=== PATIENT | male | born 1975 | race African-American/Black ===

== ENCOUNTER 2018-09-20 09:03 | Inpatient (IN) | payer OTHER ==
[~2018-09-20] VITALS: Ht 167.6 cm; Wt 172.4 kg
[2018-09-20 09:04] VITALS: BP 175/78
[2018-09-20 11:21] LABS: HEMATOCRIT 37.4 % (42.0-52.0); HEMOGLOBIN 12.4 gm/dL (14.0-18.0); MCH 27.2 pg (26.0-34.0); MCHC 33.2 g/dL (28.0-37.0); MCV 82.2 fL (80.0-100.0); RBC 4.55 mil/uL (4.50-6.00); RDW 14.5 % (10.5-14.5); WBC 23.3 thou/uL (4.0-11.0)
[2018-09-20 11:31] LABS: CREATININE 1.2 mg/dL (0.7-1.3); POTASSIUM 3.9 mmol/L (3.5-5.1)
[2018-09-20] MEDS ORDERED: ONE DAILY COMP1 EAC2 PO (13:06)
--- NOTE | 2018-09-20 15:30 | NUR ---
IV TEAM REQUESTED FOR PLACEMENT OF 2ND IV
[2018-09-20 15:44] VITALS: BP 137/79
[2018-09-20 16:05] VITALS: BP 155/65
--- NOTE | 2018-09-20 19:58 | NUR ---
PT ARRIVED ON UNIT AT 1655 ACCOMPANIED BY . PT ALERT XS 4 HAS IV ABT VANCO THAT ER COULD NOT START NO IV ACSESS. PT NOW HAS RIGHT UPPER ARM IV ACSESS. PERIPERAL. PATIENT TO HAVE SURGERY AT APPROX 0900- [address] GONZALES. PATIENT STATES DR WALSH AND JANTE SAW HIM IN ER KNOWS HE'S HERE. PT NO PAIN VERY PLEASANT. 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
[2018-09-20 21:05] VITALS: BP 141/90
[2018-09-21 00:30] VITALS: BP 140/82
[2018-09-21 05:05] VITALS: BP 128/80
--- NOTE | 2018-09-21 05:09 | NUR ---
PATIENTS CARE WAS ASSUMED AT SHIFT CHANGE. PATIENT WAS ASSESSED AND MEDS WERE PASSED. HOURLY ROUNDS WERE DONE AND PATIENT DID WEAR HIS CPAP AT BED TIME. PATIENT APPERED TO SLEEP FOR 6 TO 7 HOURS. PATIENT DID HAVE A BED BATH IN A CHAIR THIS MORNING. PATIENT IS CONSENTED TO HAVE SURGERY THIS MORNING. THE BED IS IN A LOW AND LOCKED POSITION.
[2018-09-21 05:29] LABS: HEMATOCRIT 37.3 % (42.0-52.0); HEMOGLOBIN 12.2 gm/dL (14.0-18.0); MCH 27.1 pg (26.0-34.0); MCHC 32.7 g/dL (28.0-37.0); MCV 82.9 fL (80.0-100.0); RBC 4.5 mil/uL (4.50-6.00); RDW 15.4 % (10.5-14.5)
[2018-09-21 05:42] LABS: CALCIUM 8.3 mg/dL (8.5-10.1); CREATININE 1.2 mg/dL (0.7-1.3)
[2018-09-21 06:10] LABS: GLYCOHEMOGLOBIN (HGB A1C) 6.4 % (4.8-5.6)
[2018-09-21 07:40] VITALS: BP 147/90
--- NOTE | 2018-09-21 08:55 | NUR ---
PT IS A&0X4, BLIND, NO C/O PAIN OR NAUSEA AT THIS TIME, SOUGHT OUT ANOTHER URINAL FOR HIM, GAVE HIM MOUTH SWABS, MOVED TABLE OVER CLOSER TO PT, TURNED IVF FROM 25ML/HR TO 75ML/HR. CONSENTS SIGNED. GAVE HIM WIPES TO CLEAN UP MUCH HE CAN AND ASKED HIM TO CALL FOR ANY OTHER NEEDS. CALL LIGHT WITHIN REACH AND PT KNOWS, BY FEEL, THE NURSE END. DENIES ANY TELEVISION VIEWING NEEDS OR OTHER NEEDS AT THIS TIME. ABD PAD OVER SITE, NO DRAINAGE AT THIS TIME
--- NOTE | 2018-09-21 12:54 | NUR ---
PT ARRIVED VIA BED, ACCOMPANIED BY FAMILY, ASKED FOR HIS CPAP MACHINE, WANTED TO NAP, CALLED DOWN TO DIETARY TO RETRIEVE MEAL. DENIES ANY PAIN AT THIS TIME, LIGHTLY APPLIED DRESSING TO MIDLINE W/REPORTS OF WOUND BEING OPEN, POSSIBLE RETURN TO SURGERY TOMORROW A.M. PT AND FAMILY ENCOURAGED TO USE CALL LIGHT FOR ANY NEEDS, WILL HANG IVB D/T NOW SOON IV PUMP AND PLUG IN FOUND
[2018-09-21 16:19] VITALS: BP 148/91
[2018-09-21 20:15] VITALS: BP 133/65
--- NOTE | 2018-09-22 00:36 | NUR ---
Assumed care of pt at 1900. Pt a&o x4. Denies pain. Dressing on abdomen clean and intact. IVF and antibiotics administered. Call light within reach. Will continue to monitor and assist with needs.
[2018-09-22 03:15] VITALS: BP 108/62
[2018-09-22 03:52] LABS: ALBUMIN 1.5 g/dL (3.4-5.0); CALCIUM 8.1 mg/dL (8.5-10.1); CREATININE 1.1 mg/dL (0.7-1.3); PHOSPHORUS 2.4 mg/dL (2.5-4.9)
[2018-09-22 04:30] LABS: HEMATOCRIT 33.2 % (42.0-52.0); HEMOGLOBIN 11.1 gm/dL (14.0-18.0); MCH 27.6 pg (26.0-34.0); MCHC 33.4 g/dL (28.0-37.0); MCV 82.7 fL (80.0-100.0); RBC 4.02 mil/uL (4.50-6.00); RDW 15.2 % (10.5-14.5); WBC 24.3 thou/uL (4.0-11.0)
[2018-09-22 07:11] LABS: HIV ANTIBODY Non Reactive (Non Reactive)
[2018-09-22 08:58] VITALS: BP 135/70
--- NOTE | 2018-09-22 10:54 | NUR ---
IV NURSE HERE TO PLACE PICC LINE.
--- NOTE | 2018-09-22 11:50 | NUR ---
CONSULTED TO PLACE A PICC FOR A PATIENT NEEDING HOME IV ANTIBIOTICS. ORDER AND CONSENT NOTED. DISCUSSED PICC PLACEMENT WELL BENIFITS AND RISK. THE PATIENT VERBALIZED UNDERSTANDING. THE RIGHT UPPER ARM CEPHALIC WAS WIDLEY PATENT. A #4F SINGLE LUMEN POWER PICC WAS PLACED PER POLICY AFTER A BEDSIDE TIMEOUT WAS COMPLETE. LINE WAS TRIMMED TO 41CM AND ADVANCED WITHOUT DIFFICULTY. A STAT CHEST XRAY WAS ORDERED AND LINE CONFIRMED TO BE IN GOOD POSITION FOR USE. LINE RELEASED FOR USE
--- NOTE | 2018-09-22 13:43 | NUR ---
FAXED REFERRAL TO [facility] FOR HOME IV ABX. SPOKE WITH ADM. WATKINS AND THEY RECEIVED REFERRAL AND WILL REVIEW. DCP TO FOLLOW.
--- NOTE | 2018-09-22 14:06 | NUR ---
Assess for high BMI 61.4=extreme class III obesity. Admitted with I/D of abdominal wall abscess. No hx diabetes, BG elevated 154-282 and A1C of 6.4-physician indicated insulin resistance. Started on metformin and SS insulin. Appetite is good. Pt with visual impairment but listened to appropriate changes to make with carb controlled menu. Seeks assistance ordering meals when wanting to choose from alternative menu. Low nutrition risk
--- NOTE | 2018-09-22 14:25 | HC ---
[facility] [place] [address] CONSULTATION Name: DEJON SANZ Room #: 421-P [facility] IN [facility]#: [id number] Admission: 09/20/18 ������������������ Attend Phys: Quintin Vasquez MD Discharge: ������������������ Date of : 75 Report #: [id number] THIS REPORT FOR: //name// CC: Iqra Gomez DATE OF SERVICE: 09/21/2018 REASON FOR CONSULTATION: I was asked to evaluate concerning abdominal wall mesh abscess. HISTORY OF PRESENT ILLNESS: The patient was a 43-year-old morbidly obese gentleman, who underwent ventral hernia repair for incarcerated umbilical hernia approximately 14 months ago. For this repair, he required mesh placement. Early postoperative course went well. About 10 days ago, he developed increased abdominal pain, associated with some malaise, fatigue and anorexia. He has had normal stools. He then developed increasing abdominal wall pain. He presents to the Emergency Room for further evaluation. CT scan showed evidence of right abdominal wall abscess. There was concern about diverticular disease as well. REVIEW OF SYSTEMS: Ten-point review was negative other than what is described above. ALLERGIES: None known. MEDICATIONS: Now on vancomycin and Zosyn. No antibiotics prehospital stay. PAST MEDICAL HISTORY: As noted above. FAMILY HISTORY: Noncontributory. SOCIAL HISTORY: Nonsmoker, minimal alcohol intake. PHYSICAL EXAMINATION: VITAL SIGNS: Afebrile and hemodynamically stable. GENERAL: He is alert, cooperative and pleasant, in no acute distress. He was obese. SKIN: Without rash or decubitus. No palpable adenopathy. HEENT: Eyes without scleral icterus. Mouth without mucositis. NECK: Supple. LUNGS: Clear. HEART: Regular, without murmur, gallop or rub. ABDOMEN: Distended. He had a large abdominal wound with purulent drainage down the right side of his abdomen. This will be reinforced by nursing staff. Moderate tenderness throughout. No appreciable mass or hepatosplenomegaly. [facility] [address] [place] [address] CONSULTATION Name: DEJON SANZ Room #: 421-P [facility] IN [facility].#: [id number] Admission: 09/20/18 ������������������ Attend Phys: Quintin Vasquez MD Discharge: ������������������ Date of : 75 Report #: [id number] RECTAL: Not performed. EXTERNAL GENITALIA: Without mass or lesion. EXTREMITIES: Without clubbing or cyanosis. He did have 2+ lower extremity edema. NEUROLOGIC: He was alert and cooperative. Cranial nerves intact. Strength in his upper and lower extremities was normal. Sensation intact. PSYCHIATRIC: Normal. LABORATORY STUDIES: Blood cultures are negative to date. Sodium 138, potassium 4, bicarbonate of 21, creatinine 1.2. Hemoglobin 12.2; WBC 23; platelet count 373,000. CT of the abdomen as noted above. IMPRESSION: 1. A 43-year-old with abdominal wall mesh infection with abscess. I am still concerned about potential compromised bowel beneath this and fistula. This will need to be followed postoperatively. We will await microbiology reports and cultures of the abscess. 2. Obesity. 3. Hyperglycemia. RECOMMENDATION: 1. We will continue broad antibiotic coverage pending culture results. 2. Surgical followup. 3. We will arrange outpatient therapy when appropriate. ��������������������������������������������� <ELECTRONICALLY SIGNED> ���������������������������������������� By: Donny Vinson MD ��������������������������������������������� 09/22/18 1425 [id number] Donny Vinson MD /nt
--- NOTE | 2018-09-22 15:02 | NUR ---
WOUND CONSULT: PT. WAS SEEN TODAY BY WOUND CARE TEAM DAVID THOMAS AND MYSELF. PT. HAS SURGICAL DEBRIDEMENT YESTERDAY WITH DR. GONZALES FOR A ABDOMINAL WALL ABCESS. SURGICAL DRESSING WAS CHANGED TODAY. PT. WOUND HAS LARGE AMOUNTS OF SEROUSANGIOUS FLUID AND WHAT POSSIBLY APPEARS TO BE A FISTULE IN THE BASE OF THE WOUND BED. DR. GONZALES WAS NOTIFIED. RECOMMENDATIONS: WOUND CARE TO ABDOMEN: GENTLY CLEANSE AREA WITH WOUND CLEANSER OR NORMAL SALINE, APPLY XEROFORM TO WOUND BED, PACK WITH DAKIN MOIST KERLIX, COVER WITH ABD, SECURE WITH TAPE, COMPLETE CARES DAILY AND PRN. PT. AND STAFF NURSE WERE INSTRUCTED ON PLAN OF CARE.
--- NOTE | 2018-09-22 16:31 | NUR ---
Snuff Maker visited with the pt at bedside. Cm role introduced. Pt is a&ox4 and legally blind. He reads benson. He works fulltime for the [employer] and lives with his who works from home. He is s/p I/D of a dehised surgical incision from a hernia repair. He will likely need home infusion for iv atb and HH for wound care. Awaiting final recommendations from ID and wound care. Insurance benefits and providers being checked. [facility] is innetwork with his plan as well as [facility]. Picc line was placed today. Pt reports that he will need a physician statment detailing his plan of care and when he will be able to return to work. He is not taking FMLA, only " advanced sick leave" which does not have any specific forms. Pt is also newly dx with dm and will likely need to go home on insulin. Will need to investigate options for an insulin pen that has bradille or see if his can assist. Talking meters are available. Will follow.
[2018-09-22 20:01] VITALS: BP 113/77
--- NOTE | 2018-09-23 02:19 | NUR ---
Assumed care of pt at 1900. Pt alert and oriented x4. No c/o pain. Dressing on abdomen clean and intact. IVF and antibiotics infusing. Call light within reach. Will continue to monitor and assist with needs.
[2018-09-23 04:08] LABS: HEMATOCRIT 32.1 % (42.0-52.0); HEMOGLOBIN 10.4 gm/dL (14.0-18.0); MCH 26.7 pg (26.0-34.0); MCHC 32.4 g/dL (28.0-37.0); MCV 82.7 fL (80.0-100.0); RBC 3.89 mil/uL (4.50-6.00); RDW 15.2 % (10.5-14.5); WBC 21.4 thou/uL (4.0-11.0)
[2018-09-23 04:23] VITALS: BP 110/82
[2018-09-23 07:40] VITALS: BP 132/84
--- NOTE | 2018-09-23 11:32 | NUR ---
pt wants abd dressing done later in day
--- NOTE | 2018-09-23 14:19 | NUR ---
WOUND FOLLOW UP: PT. WAS SEEN TODAY BY DR. GUDINO AND MYSELF. PT. WOUND IS CLINICALLY BETTER TODAY THEN YESTERDAY. WILL PROCEED WITH STARTING A WOUND VAC TOMORROW. RECOMMENDATIONS: CONTINUE WITH CURRENT PLAN OF CARE. PT. AND STAFF NURSE WERE INSTRUCTED ON PLAN OF CARE.
[2018-09-23 16:00] VITALS: BP 144/78
[2018-09-23 19:29] VITALS: BP 135/92
--- NOTE | 2018-09-24 00:53 | NUR ---
Assumed care of pt at 1900. Pt alert and oriented x4. Denies pain. Dressing clean and intact. IV antibiotics infusing. Call light within reach. Will continue to monitor and assist with needs.
[2018-09-24 04:44] VITALS: BP 141/74
[2018-09-24 06:08] LABS: HEMATOCRIT 33.4 % (42.0-52.0); HEMOGLOBIN 11.1 gm/dL (14.0-18.0); MCH 27.5 pg (26.0-34.0); MCHC 33.1 g/dL (28.0-37.0); MCV 83.1 fL (80.0-100.0); RBC 4.02 mil/uL (4.50-6.00); RDW 15.2 % (10.5-14.5)
[2018-09-24 07:48] VITALS: BP 140/92
--- NOTE | 2018-09-24 12:03 | NUR ---
CONTACTED BY DR GUDINO TO HAVE [facility] EVAL PT FOR POSSIBLE ADMISSION. CONTACTED MARTHA AND SHE WILL CHECK INTO PT'S BENEFITS. PT IS REALLY WANT TO GO HOME IF POSSIBLE. FOLLOWING. ANTICIPATE DC ON THURSDAY IF MEDICALLY STABLE.
--- NOTE | 2018-09-24 13:06 | NUR ---
WOUND FOLLOW UP: PT. WAS SEEN TODAY BY DR. GUDINO AND MYSELF. PT. WOUND IS READY FOR WOUND VAC TODAY. DISCUSED THIS WITH THE PT. AND HE IS AGREEABLE. WOUND VAC WILL BE APPLIED TODAY BY WOUND CARE. RECOMMENDATIONS: CONTINUE WITH CURRENT PLAN OF CARE. PT. AND STAFF NURSE WERE INSTRUCTED ON PLAN OF CARE.
[2018-09-24 16:05] VITALS: BP 132/77
--- NOTE | 2018-09-24 16:07 | NUR ---
WOUND FOLLOW UP: WOUND VAC WAS APPLIED TODAY. PT. TOLERATED PROCEDURE WELL. RECOMMENDATIONS: CONTINUE WITH CURRENT PLAN OF CARE. PT. AND STAFF NURSE WERE INSTRUCTED ON PLAN OF CARE.
--- NOTE | 2018-09-24 16:41 | NUR ---
DCP NOTIFIED SUSY AT [facility] THAT PT. WILL NOT DISCHARGE TIL THURSDAY WITH IV ABX WITH [facility] AND WOUND VAC. DCP TO FOLLOW.
--- NOTE | 2018-09-24 18:59 | NUR ---
Assumed pt car at 7am.Pt in bed with cpap on.Assessment completed. vss. Assisted pt with tray set up at all meals.Insulin given ac meals as ordered. Wound vac placed today by Judit basurto.Dr Sierra and Alisson here,order noted. Complete bath and bed change done by forest fire specialist supervisor.Pt has a good day.No verbal c/o.Pt will possibly dc home this weekend with iv antibiotic and wound vac.
[2018-09-24 20:13] VITALS: BP 147/84
--- NOTE | 2018-09-25 00:59 | NUR ---
PT DENIED PAIN SO FAR.BLE EDEMA NOTED,FEET ELEVATED WITH A PILLOW WHILE PT IN BED.PT ON A CPAP AT THIS TIME.ABD WOUND WITH A WOUND VAC,C/D/I.URINAL AT BEDSIDE.CALL LIGHT WITHIN REACH.
[2018-09-25 04:43] VITALS: BP 128/74
[2018-09-25 08:00] VITALS: BP 146/86
--- NOTE | 2018-09-25 08:45 | NUR ---
ASSESMENT COMPLETED. VSS. A/O. DENIES PAIN. NO NOTED SOA. NO NV. ASSISTED WITH URINAL. PT RESTING IN BED AT THIS TIME. APPEARS COMFORTABLE. WOUND VAC IN PLACE- 125 MMHG SUCTION. WILL CONT. TO MONITOR.
[2018-09-25 16:13] VITALS: BP 148/86
[2018-09-25 20:00] VITALS: BP 133/72
--- NOTE | 2018-09-26 01:05 | NUR ---
PT DENIED PAIN,N/V/SOB.ASSESSMENT COMPLETED.MIDLINE INCISION C/D SEAL INTACT WITH WOUND VAC.BLE EDEMA NOTED.ASSISTED PT WITH URINAL.PT SLEEPING WITH HIS CPAP AT THIS TIME,BREATHING REGULAR AND NON LABORED.IV ABX ADMINISTERED ORDERED.CALL LIGHT WITHIN REACH.
[2018-09-26 06:00] VITALS: BP 129/80
[2018-09-26 07:00] VITALS: BP 131/74
[2018-09-26 17:10] VITALS: BP 137/81
[2018-09-26 19:48] VITALS: BP 135/85
--- NOTE | 2018-09-26 20:11 | NUR ---
Assessment completed.vss.Pt in bed alert and oriented x4.Pt tolerated meds and diet.Wound vac intact to abdominal and patent.Dr Vinson and Martha here,order noted.Pt will be dc [facility] in am.Report off to sujata basurto.
--- NOTE | 2018-09-27 03:45 | NUR ---
ASSESSMNET COMPLETED.PT DENIED PAIN,N/V.HAD A LARGE FORMED BROWN BM THIS SHIFT.PT GAVE SELF A BED BATH AND WAS ASSISTED WITH SHAVING HIMSELF.ABD WOUND DRSG C/D/I WITH WOUND VAC IN PLACE.CANNISTER TO WOUND VAC WAS FULL CHANGED,SEAL INTACT.PT CONT ON IV ABX ORDERED.PT PLEASANT AND COOPERATIVE WITH CARE.CPAP IN PLACE WHILE PT IS ASLEEP.URINAL AT BEDSIDE.PT BREATHING NORMAL AND UNLABORED.CALL LIGHT WITHIN REACH.
[2018-09-27 04:36] VITALS: BP 133/74
[2018-09-27 08:59] VITALS: BP 131/77
[2018-09-27] MEDS ORDERED: GLUCOPHAGE1000 MG PO (10:25)
[2018-09-27] MEDS ORDERED: ZOSYN 4.54.5 GM/101 IV (10:28)
--- NOTE | 2018-09-27 12:37 | NUR ---
CM FOLLOWED UP WITH PT THIS DAY TO INFORM HIM OF HIS HOME IV INFUSION COVERAGE AND PT INDICATED THAT HE WAS RECEPTIVE TO LTAC. PT INDICATED HE FELT HE DIDN'T HAVE A GOOD UNDERSTANDING OF HIS [facility]IL YESTERDAY AND THAT PT IS NOW RECEPTIVE TO GOT TO [facility] FOR A TIME. PT INDICATED SHE LIVE NEED A PHYSICIAN STATEMENT TO PROVIDE TO HIS EMPLOYER. CM TO NOTIFY PHYSICAIN OF THE NEED. CM CONTACTED [facility] LIAISON AND UPDATED CLINICAL INFO WAS SENT OVER. ALYSSA TO MEET WITH PT THIS AFTERNOON. CM TO FOLLOW INDICATED WITH DC PLANNING.
--- NOTE | 2018-09-27 13:52 | NUR ---
FAXED CLINICAL UPDATE TO [facility] AND SPOKE WITH MARTHA IN ADM. SHE RECEIVED UPDATE. DCP TO FOLLOW.
[2018-09-27 17:09] VITALS: BP 115/89
--- NOTE | 2018-09-27 17:17 | NUR ---
WOUND FOLLOW UP: PT. WAS SEEN TODAY BY DR. AJ AND MYSELF. PT. WOUND VAC WAS CHANGED TODAY AND PT. TOLERATED WELL. RECOMMENDATIONS: CONTINUE WITH CURRENT PLAN OF CARE. PT. AND STAFF NURSE WERE INSTRUCTED ON PLAN OF CARE.
--- NOTE | 2018-09-27 17:31 | NUR ---
WE HAVE RECIEVED AUTH FOR PT TO GO TO [facility]. THEIR LIAISON INDICATED THAT THEY WERE WAITING FOR A PRIVATE ROOM TO OPEN. WE ARE ALSO AWAITING CORRECTED ORDERS. MICHELLE IS ANTICPATED FOR TOMORROW TO [facility].
[2018-09-27 19:23] VITALS: BP 141/79
[2018-09-28 04:48] VITALS: BP 154/80
--- NOTE | 2018-09-28 05:56 | NUR ---
ASSUMED CARE AT 1900, ASSESSMENT COMPLETED. PT DENIED PAIN, NAUSEA, OR SOB. PLEASANT AND TALKATIVE OVERNIGHT, PERIODICALLY SITTING UP AT SIDE OF BED THEN LYING BACK DOWN WITH CPAP ON AND SLEEPING FOR A FEW HOURS. IV ABX INFUSING OVERNIGHT. URINATING WELL, LARGE AMOUNTS CLEAR YELLOW. NO OTHER CONCERNS, EXPECT D/C TO [facility] TODAY, WILL CONTINUE TO MONITOR.
[2018-09-28 07:30] VITALS: BP 141/93
[2018-09-28] MEDS ORDERED: NOVOLOG100 UNIT/1 SUBQ (10:13)
--- NOTE | 2018-09-28 12:58 | NUR ---
PT TO DISCHARGE TO [facility] THIS DAY. CHART COPY ORDERED. ORDERS FAXED. REPORT TO BE CALLED TO . [facility] IS ARRANGING VAN TRANSPORT FOR 1600. PT IS AWARE AND AGREEABLE. NO OTHER CM INTERVENTION INDICATED AT THIS TIME. CASE CLOSED.
--- NOTE | 2018-09-28 14:25 | NUR ---
WOUND FOLLOW UP: PT. WAS SEEN TODAY BY DR. AJ AND MYSELF. PT. WOUND VAC WAS REMOVED TODAY TO GET READY FOR DISCAHRGE TO [facility]. PT. WILL RESUME VAC THERAPY AT [facility]. RECOMMENDATIONS: CONTINUE WITH CURRENT PLAN OF CARE. PT. AND STAFF NURSE WERE INSTRUCTED ON PLAN OF CARE.
--- NOTE | 2018-09-28 17:12 | NUR ---
PT DISCHARGED AT THIS TIME.LEFT W/C VAN. ALL BELONGINGS PACKED AND SENT WITH PATIENT. NO PAIN OR RESP DISTRESS AT DISCHARGE.
== END 2018-09-28 17:05 | DRG 907 ==
LOC: ER 09:03 → EROBS 12:45 → 4E 12:45
PROVIDERS: Emergency Medicine; Hospitalist; Surgery; ADMIT Hospitalist
PROC: 5A09357 Assistance with Respiratory Ventilation, Less than 24 Consecutive Hours, Continuous Positive Airway Pressure (ICD-10-PCS; principal; 2018-09-20)
PROC: 5A09357 Assistance with Respiratory Ventilation, Less than 24 Consecutive Hours, Continuous Positive Airway Pressure (ICD-10-PCS; 2018-09-21)
PROC: 0J980ZZ Drainage of Abdomen Subcutaneous Tissue and Fascia, Open Approach (ICD-10-PCS; 2018-09-21)
PROC: 02HV33Z Insertion of Infusion Device into Superior Vena Cava, Percutaneous Approach (ICD-10-PCS; 2018-09-22)
PROC: 5A09357 Assistance with Respiratory Ventilation, Less than 24 Consecutive Hours, Continuous Positive Airway Pressure (ICD-10-PCS; 2018-09-22)
PROC: 5A09357 Assistance with Respiratory Ventilation, Less than 24 Consecutive Hours, Continuous Positive Airway Pressure (ICD-10-PCS; 2018-09-23)
DX: T85.79XA Infection and inflammatory reaction due to other internal prosthetic devices, implants and grafts, initial encounter (principal); A41.9 Sepsis, unspecified organism; E43 Unspecified severe protein-calorie malnutrition; T81.32XA Disruption of internal operation (surgical) wound, not elsewhere classified, initial encounter; L02.211 Cutaneous abscess of abdominal wall; Z68.44 Body mass index [BMI] 60.0-69.9, adult; K57.20 Diverticulitis of large intestine with perforation and abscess without bleeding; T81.41XA Infection following a procedure, superficial incisional surgical site, initial encounter; K43.9 Ventral hernia without obstruction or gangrene; E66.01 Morbid (severe) obesity due to excess calories; R73.9 Hyperglycemia, unspecified; H54.8 Legal blindness, as defined in USA; Y83.8 Other surgical procedures as the cause of abnormal reaction of the patient, or of later complication, without mention of misadventure at the time of the procedure; Y92.89 Other specified places as the place of occurrence of the external cause
CPT/HCPCS: 10084; 27000; 50010; 50101; 50386; 50417; 52287; 62110; 62900; 65131; 70005

== ENCOUNTER → 2018-10-21 | Outpatient (CLI) | payer OTHER ==
[~2018-10-21] MED LIST: GLUCOPHAGE1000 MG PO; NOVOLOG100 UNIT/1 SUBQ; ONE DAILY COMP1 EAC2 PO; ZOSYN 4.54.5 GM/101 IV
== END ==
LOC: HYPER 07:02
DX: T81.49XA Infection following a procedure, other surgical site, initial encounter (principal); T81.31XA Disruption of external operation (surgical) wound, not elsewhere classified, initial encounter; E66.01 Morbid (severe) obesity due to excess calories; G47.33 Obstructive sleep apnea (adult) (pediatric); E44.0 Moderate protein-calorie malnutrition; Z87.891 Personal history of nicotine dependence; Z79.84 Long term (current) use of oral hypoglycemic drugs; Z68.44 Body mass index [BMI] 60.0-69.9, adult; Y92.89 Other specified places as the place of occurrence of the external cause; Y83.8 Other surgical procedures as the cause of abnormal reaction of the patient, or of later complication, without mention of misadventure at the time of the procedure

== ENCOUNTER → 2018-11-02 | Outpatient (CLI) | payer OTHER | LOC: HYPER 06:59 | DX: T81.49XD Infection following a procedure, other surgical site, subsequent encounter (principal); T81.31XD Disruption of external operation (surgical) wound, not elsewhere classified, subsequent encounter; E11.9 Type 2 diabetes mellitus without complications; E66.01 Morbid (severe) obesity due to excess calories; G47.33 Obstructive sleep apnea (adult) (pediatric); E44.0 Moderate protein-calorie malnutrition; Z68.44 Body mass index [BMI] 60.0-69.9, adult; Z79.84 Long term (current) use of oral hypoglycemic drugs; Z87.891 Personal history of nicotine dependence; Y83.8 Other surgical procedures as the cause of abnormal reaction of the patient, or of later complication, without mention of misadventure at the time of the procedure ==

== ENCOUNTER → 2018-11-12 | Outpatient (CLI) | payer OTHER | LOC: HYPER 08:38 | DX: T81.49XD Infection following a procedure, other surgical site, subsequent encounter (principal); E66.01 Morbid (severe) obesity due to excess calories; G47.33 Obstructive sleep apnea (adult) (pediatric); E44.0 Moderate protein-calorie malnutrition; Z68.44 Body mass index [BMI] 60.0-69.9, adult; Z79.84 Long term (current) use of oral hypoglycemic drugs; Z87.891 Personal history of nicotine dependence; Y83.8 Other surgical procedures as the cause of abnormal reaction of the patient, or of later complication, without mention of misadventure at the time of the procedure ==

== ENCOUNTER → 2018-11-25 | Outpatient (CLI) | payer OTHER | LOC: HYPER 06:43 | DX: T81.49XD Infection following a procedure, other surgical site, subsequent encounter (principal); E66.01 Morbid (severe) obesity due to excess calories; G47.33 Obstructive sleep apnea (adult) (pediatric); E44.0 Moderate protein-calorie malnutrition; Z68.44 Body mass index [BMI] 60.0-69.9, adult; Z79.84 Long term (current) use of oral hypoglycemic drugs; Z87.891 Personal history of nicotine dependence; Y83.8 Other surgical procedures as the cause of abnormal reaction of the patient, or of later complication, without mention of misadventure at the time of the procedure ==

== ENCOUNTER 2018-12-03 18:58 | Inpatient (IN) | payer OTHER ==
[~2018-12-03] VITALS: Ht 167.6 cm; Wt 174.2 kg
[2018-12-03 19:01] VITALS: BP 155/103
[2018-12-03 19:56] LABS: URINE BILIRUBIN NEGATIVE (Negative); URINE BLOOD TRACE (Negative); URINE CLARITY CLEAR; URINE COLOR YELLOW; URINE GLUCOSE-RANDOM* NEGATIVE (Negative); URINE KETONES NEGATIVE (Negative); URINE LEUKOCYTES-REFLEX TRACE (Negative); URINE NITRITE-REFLEX NEGATIVE (Negative); URINE PROTEIN (DIPSTICK) 1+ (Negative)
[2018-12-03 20:10] LABS: BACTERIA-REFLEX None Seen /HPF (None Seen); CASTS None Seen /LPF (None Seen); CRYSTALS None Seen /LPF (None Seen); SQUAMOUS 0-3 Few /LPF (0-3); URINE RBC None Seen /HPF (0-2); URINE WBC-REFLEX 6-15 Few /HPF (0-5)
[2018-12-03 22:44] LABS: ABSOLUTE NEUTROPHILS 13.3 thou/uL (1.4-8.2); BASOPHILS 0.4 % (0.0-2.0); EOSINOPHILS 0.1 % (0.0-3.0); HEMATOCRIT 33.5 % (42.0-52.0); HEMOGLOBIN 10.9 gm/dL (14.0-18.0); LYMPHOCYTES 8.4 % (24.0-44.0); MCH 27.4 pg (26.0-34.0); MCHC 32.5 g/dL (28.0-37.0); MCV 84.3 fL (80.0-100.0); MONOCYTES 10.2 % (1.0-8.0); PLATELET COUNT 274 thou/uL (150-400); POLYS 80.9 % (36.0-66.0); RBC 3.97 mil/uL (4.50-6.00); RDW 15.4 % (10.5-14.5); WBC 16.4 thou/uL (4.0-11.0)
[2018-12-03 22:50] LABS: ANION GAP 13 mmol/L (7-16); BUN 16 mg/dL (7-18); CALCIUM 8.5 mg/dL (8.5-10.1); CHLORIDE 101 mmol/L (98-107); CO2 22 mmol/L (21-32); CREATININE 1.3 mg/dL (0.7-1.3); GLUCOSE 239 mg/dL (74-106); SODIUM 136 mmol/L (136-145)
[2018-12-03 22:56] LABS: ALBUMIN 2.2 g/dL (3.4-5.0); DIRECT BILIRUBIN < 0.1 mg/dL (<0.1-0.3); LIPASE 105 U/L (73-393); SGOT 25 U/L (15-37); SGPT 26 U/L (30-65); TOTAL BILIRUBIN 0.3 mg/dL (<0.1-1.0)
[2018-12-04 01:57] VITALS: BP 136/79
[2018-12-04 02:32] VITALS: BP 127/78
[2018-12-04 08:00] VITALS: BP 135/83
[2018-12-04 15:00] VITALS: BP 151/94
[2018-12-04 17:56] VITALS: BP 145/87
[2018-12-04 20:48] VITALS: BP 122/94
[2018-12-05 01:52] LABS: HEMATOCRIT 34.5 % (42.0-52.0); HEMOGLOBIN 11.5 gm/dL (14.0-18.0); MCH 27.9 pg (26.0-34.0); MCHC 33.3 g/dL (28.0-37.0); MCV 83.9 fL (80.0-100.0); RBC 4.11 mil/uL (4.50-6.00); RDW 15.2 % (10.5-14.5); WBC 20.2 thou/uL (4.0-11.0)
[2018-12-05 01:55] LABS: PLATELET COUNT 361 thou/uL (150-400)
[2018-12-05 02:04] LABS: CALCIUM 8.8 mg/dL (8.5-10.1); CREATININE 1.2 mg/dL (0.7-1.3); POTASSIUM 3.7 mmol/L (3.5-5.1)
[2018-12-05 03:36] VITALS: BP 143/91
[2018-12-05 07:36] VITALS: BP 156/94
[2018-12-05 19:39] VITALS: BP 142/73
--- NOTE | 2018-12-05 22:10 | HC ---
[facility] [place] [address] CONSULTATION Name: KOLE WALL Room #: 464-P [facility] IN .R.#: [id number] Admission: 12/04/18 ������������������ Attend Phys: Santana Chun MD Discharge: ������������������ Date of : 75 Report #: [id number] THIS REPORT FOR: //name// CC: Santana ROSALES PCP DATE OF SERVICE: 12/04/2018 CONSULTATION: Infectious diseases. HISTORY OF PRESENT ILLNESS: Kole Wall is a 43-year-old gentleman who presents to the ER with a large abdominal wall abscess. The patient had a ventral hernia repair in the past. In July, he developed an acute incarceration in his umbilical hernia. This required emergent surgery. The surgery was complicated by infection, which was diagnosed on 09/2018. He underwent incision, drainage and debridement, but without replacement of the mesh at that time. He had a VAC, was able to eventually heal the wound to just a pinpoint. The patient was doing well and stable until about 2 days prior to admission. He developed inflammatory changes including fevers, chills, malaise and hardness around the previous wound. He presented to the ER where he was noted to have a fever and the CT scan demonstrated an abdominal wall abscess 13 x 8.5 x 15.4 cm with possible concern about communication with the colon. The patient went to surgery this morning and Dr. Grimm opened up the abscess and marsupialized it. He found all the changes were superficial to the peritoneum and mesh. The abdominal cavity was not entered, nor was the mesh removed . Multiple cultures were obtained. The patient was started on vancomycin and Zosyn. Infectious Disease consultation was requested to assist with further evaluation and treatment. PAST MEDICAL HISTORY: The patient's chart notes that he is diabetic and he does have a sugar of 239, but the patient states he is not diabetic, but only has hyperglycemia with infections. 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 Other than his abdominal wall hernia, the patient says he is otherwise in good health. The patient is morbidly obese. He has sleep apnea and uses a CPAP at night. MEDICATIONS: List includes metformin. FAMILY HISTORY: Noncontributory. SOCIAL HISTORY: The patient is . Although, he is blind, he is able to work in a [employer] type job. He has no history of tobacco, alcohol or drugs. PHYSICAL EXAMINATION: GENERAL: The patient appears alert, oriented, comfortable, not in any distress. VITAL SIGNS: Show the patient maximum measured temperature was this morning at [address] [address] CONSULTATION Name: YVONKOLE Alcides Room #: 464-P [facility] IN ..#: [id number] Admission: 12/04/18 ������������������ Attend Phys: Santana Chun MD Discharge: ������������������ Date of : 75 Report #: [id number] 103.1. Temperature is 98.4 at the time of my examination, blood pressure 122/94, and his weight is 175 kilograms. SKIN: Shows no rash, lesion, or exanthem except for the surgical wound. ENT: Negative. NECK: Supple. HEART: Sounds distant, they are normal. Breath sounds distant, but clear. ABDOMEN: Belly is morbidly obese, soft, nontender. There is a wound with gauze dressing. The edge of the wound there appears a robust granulation tissue and healthy skin. The packing itself was not removed. EXTREMITIES: Edematous, but otherwise unremarkable. LABORATORY DATA: The white count before surgery was 16,000, hemoglobin 10.9, hematocrit 33%, and platelet 274,000. Electrolytes were normal. BUN is 16, creatinine 1.3, and glucose 239. Liver function tests were normal. Of note, when the patient was hospitalized here in September, his blood glucose measurements were 186, 148 and 220. IMPRESSION: Large abdominal wall abscess. We will continue the patient on vancomycin plus Zosyn pending results of cultures. In September, the abscess grew out pansensitive E. coli and Bacteroides non fragilis. We will probably be able to deescalate the antibiotics after cultures are complete. I anticipate that they will use a VAC to accelerate healing of the wound after the initial postoperative period. It seems that at some point it will be important to remove the abdominal wall mesh to prevent further problems. If indeed there is a colovesical fistula, the patient will need diet modifications to cut down the amount of material coming through the fistula causing reinfection. This may be clear with followup imaging studies or may require an endoscopy. For now, we will treat the wound and the infection. I appreciate the opportunity of input in the care of this pleasant gentleman. Thank you for requesting Infectious Disease consultation. Dr. Donny Vinson will return on Thursday and assume follow up Infectious Disease care. ��������������������������������������������� <ELECTRONICALLY SIGNED> ���������������������������������������� By: Orlando Singh MD ��������������������������������������������� 12/05/180 0827 Orlando Singh MD /nt
[2018-12-06 02:09] LABS: ABSOLUTE NEUTROPHILS 10.5 thou/uL (1.4-8.2); BASOPHILS 0.4 % (0.0-2.0); EOSINOPHILS 1.3 % (0.0-3.0); HEMATOCRIT 32.1 % (42.0-52.0); HEMOGLOBIN 10.5 gm/dL (14.0-18.0); LYMPHOCYTES 11.5 % (24.0-44.0); MCH 27.5 pg (26.0-34.0); MCHC 32.6 g/dL (28.0-37.0); MCV 84.3 fL (80.0-100.0); MONOCYTES 8.9 % (1.0-8.0); PLATELET COUNT 315 thou/uL (150-400); POLYS 77.9 % (36.0-66.0); RBC 3.81 mil/uL (4.50-6.00); RDW 15.1 % (10.5-14.5); WBC 13.5 thou/uL (4.0-11.0)
[2018-12-06 05:56] VITALS: BP 150/75
[2018-12-06 08:00] VITALS: BP 134/88
[2018-12-06 13:08] LABS: GLYCOHEMOGLOBIN (HGB A1C) 5.9 % (4.8-5.6)
[2018-12-06 15:00] VITALS: BP 138/84
[2018-12-06 23:00] VITALS: BP 136/87
[2018-12-07 04:02] VITALS: BP 142/82
[2018-12-07 05:56] LABS: HEMATOCRIT 30.5 % (42.0-52.0); HEMOGLOBIN 10.2 gm/dL (14.0-18.0); MCH 28.2 pg (26.0-34.0); MCHC 33.4 g/dL (28.0-37.0); MCV 84.5 fL (80.0-100.0); PLATELET COUNT 371 thou/uL (150-400); RBC 3.61 mil/uL (4.50-6.00); RDW 14.9 % (10.5-14.5); WBC 12.2 thou/uL (4.0-11.0)
[2018-12-07 06:11] LABS: ALBUMIN 1.8 g/dL (3.4-5.0); CALCIUM 7.7 mg/dL (8.5-10.1); CREATININE 1.2 mg/dL (0.7-1.3); MAGNESIUM 2.3 mg/dL (1.8-2.4); POTASSIUM 3.6 mmol/L (3.5-5.1); TOTAL BILIRUBIN 0.2 mg/dL (<0.1-1.0); TOTAL PROTEIN 6.6 g/dL (6.4-8.2)
[2018-12-07 06:43] LABS: PLATELET ESTIMATE NORMAL
[2018-12-07 08:05] VITALS: BP 143/93
--- NOTE | 2018-12-07 17:06 | PATH ---
[facility] [address] [place] [address] PATHOLOGY RPT PROCEDURE Name: DEJON SANZ Room #: 464-P [facility] IN M.R.#: [id number] ������������������ Admission: 12/04/18 ������������������ Date of : 75 Discharge: Report #: [id number] Path Case #: [id number] [facility] Accession Number: [id number] . 01 Material submitted: . abdomen - ABDOMINAL WOUND . 01 Clinical history: . Abdominal abscess . 02 Diagnosis: Abdominal wound, abdominal abscess, incision and drainage: - Skin and subcutaneous tissue with marked acute inflammation and abscess formation. (IUV:bela; 12/07/2018) QMS/12/07/2018 . 02 Electronically signed: . Chani Sneed MD, Pathologist NPI- [id number] . 01 Gross description: . The specimen is received in formalin, labeled "Duke, Dejon, abdominal wound" and consists of a segment of schneider-elias skin measuring 9.4 x 2.1 cm with underlying partially necrotic yellow to black soft tissue measuring 9.2 x 5.4 x 4.0 cm. A full-thickness artists' booking representative section is submitted in A1-A2. (SDY; 12/06/2018) SYU/SYU . 02 Pathologist provided ICD-10: L08.9, L02.211 . 02 CPT . 770762 Specimen Comment: A courtesy copy of this report has been sent to Specimen Comment: [phone], . Specimen Comment: Report sent to / DR PICKENS Performed at: [address], [place] [id number] MD Eron Burnette MD Phone: [phone] Performed at: [address] [id number] MD Chani Sneed MD Phone: [phone]
[2018-12-07 18:14] VITALS: BP 153/91
[2018-12-07 20:54] VITALS: BP 164/99
[2018-12-08 05:10] VITALS: BP 90/58
[2018-12-08 17:31] VITALS: BP 153/89
[2018-12-09 04:12] VITALS: BP 158/95
[2018-12-09 05:32] LABS: HEMATOCRIT 31.3 % (42.0-52.0); HEMOGLOBIN 10.4 gm/dL (14.0-18.0); MCH 27.3 pg (26.0-34.0); MCHC 33.1 g/dL (28.0-37.0); MCV 82.6 fL (80.0-100.0); PLATELET COUNT 395 thou/uL (150-400); RBC 3.79 mil/uL (4.50-6.00); WBC 12.2 thou/uL (4.0-11.0)
[2018-12-09 07:49] VITALS: BP 157/82
[2018-12-09 08:01] LABS: ABSOLUTE NEUTROPHILS 7.9 thou/uL (1.4-8.2); ATYPICAL LYMPHS 1 %; METAMYELOCYTES 5 %
[2018-12-09 08:02] LABS: ANISOCYTOSIS 1+
[2018-12-09 17:15] VITALS: BP 145/92
[2018-12-09 20:07] VITALS: BP 105/84
[2018-12-10 04:09] VITALS: BP 158/83
[2018-12-10 08:22] VITALS: BP 145/84
--- NOTE | 2018-12-10 12:06 | PATH ---
[facility] [address] [place] [address] PATHOLOGY RPT PROCEDURE Name: DEJON WALL Room #: 464-P ADM IN M.R.#: [id number] ������������������ Admission: 12/04/18 ������������������ Date of : 75 Discharge: Report #: [id number] Path Case #: [id number] [facility] Accession Number: [id number] . 01 Material submitted: . abdomen - ABDOMINAL WOUND SKIN AND TISSUE . 01 Clinical history: . Abdominal wall wound . 02 Diagnosis: Abdominal wound skin and tissue, debridement: - Skin and subcutaneous tissue showing marked acute inflammation as well as fibrinoid degeneration, consistent with debridement tissue. (IUV:guest relations agent; 12/09/2018) MBR/12/09/2018 . 02 Electronically signed: . Chani Sneed MD, Pathologist NPI- [id number] . 01 Gross description: . The specimen is received in formalin, labeled "Dejon Wall, abdominal wound skin and tissue". Received are two segments of yellow-elias fibroadipose tissue with attached schneider-brown skin measuring 10.7 x 8.7 x 3.8 cm in aggregate dimensions. Sectioning reveals bright yellow, lobulated cut surfaces throughout with scattered white fibrous tissue. No distinct nodules or lesions are noted grossly. The specimen is submitted representatively in cassette A1. (CAA; 12/08/2018) QAC/QAC . 02 Pathologist provided ICD-10: L08.9, S31.109A . 02 CPT . 652960 Specimen Comment: A courtesy copy of this report has been sent to Specimen Comment: [phone], . Specimen Comment: Report sent to / DR MCMAHAN Performed at: 01 [place] [id number] [id number] MD Eron Burnette MD Phone: [phone] Performed at: [address] [id number] [address] [address] PATHOLOGY RPT PROCEDURE Name: DEJON WALL Room #: 464-P ADM IN M.R.#: [id number] ������������������ Admission: 12/04/18 ������������������ Date of : 75 Discharge: Report #: [id number] Path Case #: [id number] MD Chani Sneed MD Phone: [phone]
[2018-12-10 16:21] VITALS: BP 158/82
[2018-12-10 21:11] VITALS: BP 159/115
[2018-12-11 02:58] VITALS: BP 132/72
[2018-12-11 04:28] VITALS: BP 163/77
[2018-12-11 08:00] VITALS: BP 152/86
[2018-12-11 15:00] VITALS: BP 144/85
[2018-12-11 19:47] VITALS: BP 156/78
[2018-12-12 05:07] VITALS: BP 160/94
--- NOTE | 2018-12-12 07:47 | HC ---
[facility] [place] [address] CONSULTATION Name: DEJON SANZ Room #: 464-P ADM IN M.R.#: [id number] Admission: 12/04/18 ������������������ Attend Phys: Antoine Markham MD Discharge: ������������������ Date of : 75 Report #: [id number] THIS REPORT FOR: //name// CC: Santana ZAMBRANO DATE OF SERVICE: 12/05/2018 WOUND CARE CONSULTATION NOTE REASON FOR CONSULTATION: Postoperative day #1 status post incision and drainage of anterior abdominal wall abscess associated with previous ventral hernia repair with mesh, admitted to ER. HISTORY OF PRESENT ILLNESS: The patient is a 43-year-old diabetic gentleman with morbid obesity, well known to the wound care service from previous care. The patient in the past had repair of ventral hernia with mesh and was here in July. At that time, the patient had incarceration of umbilical hernia. Hernia was repaired. He developed wound complications requiring open wound and wound VAC. Wound had mostly healed except for a small area. The patient has now presented himself to the Emergency Room where he gave a history that he had been having some pain in the abdominal area with fever, chills, malaise and firmness around the wound. CT demonstrated an abscess of the abdominal wall. The patient was taken to surgery yesterday by Dr. Grimm, where he had a wide incision and drainage of the anterior abdominal abscess. All pus was drained. The abscess did not communicate with the abdominal cavity. There was no evidence of a fistula. Apparently, the mesh was not removed. Wound Care is consulted for care of his open wound. PAST MEDICAL HISTORY: Morbid obesity, diabetes, congenital blindness, history of abdominal hernia, sleep apnea with CPAP. PAST SURGICAL HISTORY: History of ventral and umbilical hernia repair with complications and mesh repair. REVIEW OF SYSTEMS: Negative except for blindness. PHYSICAL EXAMINATION: GENERAL: Shows a pleasant, conversant, good historian, 43-year-old gentleman, who is a morbidly obese -[place] gentleman. He is wearing a CPAP. LUNGS: Respirations are unlabored. ABDOMEN: Obese. EXTREMITIES: There are no extremity wounds. SKIN: Examination of the anterior abdomen shows a large open wound packed with Kerlix. Wound measures approximately 9 cm in length, 6 cm in width and approximately 5 cm deep. An entire roll of Kerlix was removed from the wound. [address] [address] CONSULTATION Name: DEJON SANZ Room #: 464-P [facility] IN M.R.#: [id number] Admission: 12/04/18 ������������������ Attend Phys: Antoine Markham MD Discharge: ������������������ Date of : 75 Report #: [id number] There is some undermining of the wound more on the left than the right. With removal of the packing, there was no bleeding. There was some odor on the dressing. Dressing was replaced with a quarter strength Dakin's, moist Kerlix pack and entire Kerlix pack was packed into the wound. This will be changed again tomorrow by the wound care nurse, Pao. IMPRESSION: 1. 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 2. Morbid obesity. 3. Sleep apnea, requiring CPAP. 4. Congenital blindness. 5. Abdominal abscess at the site of previous ventral hernia repair with mesh, postoperative day #1, status post incision and drainage. PLAN: Continue IV antibiotics. Infectious Disease on the case. Pack wound daily with quarter strength Dakin's pack. Once wound is cleaned, negative pressure wound therapy with wound VAC can be again instituted. He had a wound VAC at previous admission. He is well known to the wound care team and Pao Sawyer, wound care nurse. ��������������������������������������������� <ELECTRONICALLY SIGNED> ���������������������������������������� By: Juan Mehta MD ��������������������������������������������� 12/12/18 0747 1317 0025 Juan Mehta MD /nt
[2018-12-12 08:19] VITALS: BP 173/96
[2018-12-12 14:17] VITALS: BP 150/82
[2018-12-12 19:53] VITALS: BP 122/68
[2018-12-13 03:39] VITALS: BP 150/98
[2018-12-13 08:00] VITALS: BP 151/92
[2018-12-13 15:00] VITALS: BP 141/80
[2018-12-13 20:17] VITALS: BP 150/87
[2018-12-14 04:23] VITALS: BP 153/94
--- NOTE | 2018-12-14 09:04 | O ---
[facility] [place] [address] OPERATIVE REPORT Name: YVONDEJON Alcides Room #: 464-P ADM IN M.R.#: [id number] Admission: 12/04/18 ������������������ Attend Phys: Antoine Markham MD Discharge: ������������������ Date of : 75 Report #: [id number] THIS REPORT FOR: //name// CC: Santana Chun MD NO PCP DATE OF SERVICE: 12/04/2018 SURGEON: Jorge Grimm MD FLOTATION TENDER: None. PREOPERATIVE DIAGNOSES: 1. 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 2. History of previous open and incarcerated umbilical hernia repair with mesh. 3. Super morbid obesity. 4. Type 2 diabetes mellitus. POSTOPERATIVE DIAGNOSES: 1. 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 2. History of previous open and incarcerated umbilical hernia repair with mesh. 3. Super morbid obesity. 4. Type 2 diabetes mellitus. PROCEDURE: Excisional debridement and washout of chronic abdominal wound including skin and subcutaneous tissue (starting wound measurement 3 cm2; ending wound measurement 128 cm2). ANESTHESIA: Monitored anesthetic care and local anesthetic. ESTIMATED BLOOD LOSS: 25 mL. SPECIMEN: Abdominal wound including skin and subcutaneous tissue. COMPLICATIONS: None appreciated. INDICATIONS FOR PROCEDURE: This is a 43-year-old super morbidly obese male patient who underwent incision and drainage of a large abdominal wall abscess in early September of this year. He has been following with the Wound Care Service. His wound has essentially healed other than a small opening that occasionally drains purulent fluid. The patient developed fever with a temperature of 102 degrees Fahrenheit and was seen in the [place] [facility]. CT revealed subcutaneous abscess with significant amount of air measuring 16 x 14.5 x 9 cm with concern for a fistula. The patient has a history of previous hernia repair with mesh in [place] in 07/2017. At that time, the patient was traveling [facility] [address] [place] [address] OPERATIVE REPORT Name: DEJON SANZ Room #: 464-P ADM IN [facility].#: [id number] Admission: 12/04/18 ������������������ Attend Phys: Antoine Markham MD Discharge: ������������������ Date of : 75 Report #: [id number] and he had incarceration of his umbilical hernia which required emergent open umbilical hernia repair. The patient denies having had diverticulitis in the past and has never had a colonoscopy. He denies history of inflammatory bowel disease. Based on his symptomatology, the patient presents now for excisional debridement of his wound with drainage of the probable purulent fluid. OPERATIVE FINDINGS: The underlying cavity was as measured on the CT scan. Necrotic tissue extended down to the abdominal wall/mesh. There was no exposed bowel and the peritoneal cavity was not entered. Debridement was carried down to healthy, bleeding tissue. The final size of the opening was 15 cm long x 8.5 cm wide x 8-10 cm deep. There was no stool seen extending directly through the mesh. DESCRIPTION OF PROCEDURE IN DETAIL: After the risks, benefits, and expectations of the operation were discussed in detail with the patient, informed consent was obtained. The patient was identified in preoperative holding area. He has been receiving scheduled IV antibiotics. He was taken to the Operating Room and he was placed in the supine position. SCDs were placed on the patient's bilateral lower extremities and pneumatic compression was initiated. The patient was then given IV sedation. When adequately sedated, the patient's abdomen was prepped and draped in the standard sterile fashion. A time-out was performed to identify the correct patient and procedure. Local anesthetic was infiltrated into the skin and subcutaneous tissue around the scar and wound opening, which measured 3 cm long x 1 cm wide. A sharp #10 blade scalpel was used to make an elliptoid longitudinal incision. Electrocautery was used to dissect through the subcutaneous tissue down to the fluid cavity where the fluid was cultured x 2 for aerobes, anaerobes and fungus. The subcutaneous tissue and skin overlying the cavity was excised with electrocautery. Bleeding points were made hemostatic while doing so. There was some necrotic tissue extending from the excised tissue down to the mesh. This was closely examined and no stool was seen emanating through the mesh. Bleeding points were made hemostatic with electrocautery. The wound was then copiously irrigated and suctioned until return of all drainage ran clear. There was no hemorrhage within the cavity. The wound was then packed with 1:1 Betadine and normal saline on Kerlix. The wound was dressed with 4 x 4s and ABD pad, and Medipore tape. The patient tolerated the procedure well. He was awakened and taken to the Recovery Room in stable condition with no apparent intraoperative complications. ��������������������������������������������� <ELECTRONICALLY SIGNED> ���������������������������������������� By: Jorge Grimm MD, FACS ��������������������������������������������� 12/14/1804 1713 31 Jorge Grimm MD, FACS /nt
[2018-12-14 09:32] VITALS: BP 152/93
[2018-12-14] MEDS ORDERED: METRONIDAZOLE500 M4 PO (10:48)
[2018-12-14] MEDS ORDERED: HYDROCODON-ACE1 EAC7 PO (10:48)
[2018-12-14] MEDS ORDERED: PEPCID AC10 MG PO (10:48)
[2018-12-14 15:21] VITALS: BP 149/85
== END 2018-12-14 21:08 | DRG 856 ==
LOC: ER 18:58 → 4W 12-04 00:50 → EROBS 12-04 00:50 → 4W 12-04 02:12
PROVIDERS: Emergency Medicine; Hospitalist; Internal Medicine Infectious Disease; ADMIT Internal Medicine
PROC: 0JB80ZZ Excision of Abdomen Subcutaneous Tissue and Fascia, Open Approach (ICD-10-PCS; principal; 2018-12-04)
PROC: 5A09357 Assistance with Respiratory Ventilation, Less than 24 Consecutive Hours, Continuous Positive Airway Pressure (ICD-10-PCS; 2018-12-04)
PROC: 02HV33Z Insertion of Infusion Device into Superior Vena Cava, Percutaneous Approach (ICD-10-PCS; 2018-12-09)
PROC: B5181ZA Fluoroscopy of Superior Vena Cava using Low Osmolar Contrast, Guidance (ICD-10-PCS; 2018-12-09)
PROC: 0KBL0ZZ Excision of Left Abdomen Muscle, Open Approach (ICD-10-PCS; 2018-12-09)
PROC: B548ZZA Ultrasonography of Superior Vena Cava, Guidance (ICD-10-PCS; 2018-12-09)
DX: T81.49XA Infection following a procedure, other surgical site, initial encounter (principal); A41.9 Sepsis, unspecified organism; E43 Unspecified severe protein-calorie malnutrition; L02.211 Cutaneous abscess of abdominal wall; E87.2 Acidosis; K63.2 Fistula of intestine; Z68.44 Body mass index [BMI] 60.0-69.9, adult; E66.01 Morbid (severe) obesity due to excess calories; G47.33 Obstructive sleep apnea (adult) (pediatric); D64.9 Anemia, unspecified; E11.628 Type 2 diabetes mellitus with other skin complications; Y83.8 Other surgical procedures as the cause of abnormal reaction of the patient, or of later complication, without mention of misadventure at the time of the procedure; H54.8 Legal blindness, as defined in USA; Z79.84 Long term (current) use of oral hypoglycemic drugs; Y92.89 Other specified places as the place of occurrence of the external cause
CPT/HCPCS: 10040; 50010; 50101; 50366; 50386; 50417; 50643; 62110; 62900; 70005

== ENCOUNTER → 2019-01-14 | Outpatient (CLI) | payer OTHER ==
[~2019-01-14] MED LIST changes: +HYDROCODON-ACE1 EAC7 PO; +METRONIDAZOLE500 M4 PO; +PEPCID AC10 MG PO
== END ==
LOC: HYPER
DX: T81.49XD Infection following a procedure, other surgical site, subsequent encounter (principal); E66.01 Morbid (severe) obesity due to excess calories; G47.33 Obstructive sleep apnea (adult) (pediatric); E44.0 Moderate protein-calorie malnutrition; Z68.44 Body mass index [BMI] 60.0-69.9, adult; Z79.84 Long term (current) use of oral hypoglycemic drugs; Z87.891 Personal history of nicotine dependence; Y83.8 Other surgical procedures as the cause of abnormal reaction of the patient, or of later complication, without mention of misadventure at the time of the procedure

== ENCOUNTER → 2019-01-28 | Outpatient (CLI) | payer OTHER | LOC: HYPER 07:03 | DX: T81.49XD Infection following a procedure, other surgical site, subsequent encounter (principal); E11.9 Type 2 diabetes mellitus without complications; E66.01 Morbid (severe) obesity due to excess calories; G47.33 Obstructive sleep apnea (adult) (pediatric); E44.0 Moderate protein-calorie malnutrition; Z68.44 Body mass index [BMI] 60.0-69.9, adult; Z87.891 Personal history of nicotine dependence; Z79.84 Long term (current) use of oral hypoglycemic drugs; Y83.8 Other surgical procedures as the cause of abnormal reaction of the patient, or of later complication, without mention of misadventure at the time of the procedure ==

== ENCOUNTER → 2019-02-10 | Outpatient (CLI) | payer OTHER | LOC: HYPER 07:04 | DX: T81.49XD Infection following a procedure, other surgical site, subsequent encounter (principal); E11.9 Type 2 diabetes mellitus without complications; E66.01 Morbid (severe) obesity due to excess calories; E44.0 Moderate protein-calorie malnutrition; H54.7 Unspecified visual loss; G47.33 Obstructive sleep apnea (adult) (pediatric); Z87.891 Personal history of nicotine dependence; Z68.44 Body mass index [BMI] 60.0-69.9, adult; Z79.84 Long term (current) use of oral hypoglycemic drugs; Y83.8 Other surgical procedures as the cause of abnormal reaction of the patient, or of later complication, without mention of misadventure at the time of the procedure ==

== ENCOUNTER → 2019-02-28 | Outpatient (CLI) | payer OTHER | LOC: HYPER 06:54 | DX: T81.49XD Infection following a procedure, other surgical site, subsequent encounter (principal); E11.9 Type 2 diabetes mellitus without complications; G47.33 Obstructive sleep apnea (adult) (pediatric); E44.0 Moderate protein-calorie malnutrition; E66.01 Morbid (severe) obesity due to excess calories; A41.9 Sepsis, unspecified organism; Z79.84 Long term (current) use of oral hypoglycemic drugs; Z68.44 Body mass index [BMI] 60.0-69.9, adult; Z87.891 Personal history of nicotine dependence; Y83.8 Other surgical procedures as the cause of abnormal reaction of the patient, or of later complication, without mention of misadventure at the time of the procedure ==